=== PATIENT | female | born 1965 | race Two or more races ===

== ENCOUNTER 2016-04-05 13:41 | Emergency (ER) | payer SELFPAY ==
--- NOTE | 2016-04-05 14:16 | Emergency Department Record ---
History of Present Illness - General Chief complaint: Extremity Problem Stated complaint: INJURY TO RT FOOT Time Seen by Provider: 04/05/16 14:12 Source: Patient, RN notes reviewed - History of Present Illness Initial comments: patient fell with trauma to the right foot great toe area just prior to arrival. Great toe deformity present. swelling of ankle and no other injuries. 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: Extremity pain Location: Right, Foot - Related Data Home Medications Medication Instructions Recorded Confirmed Last Taken Amlodipine Besylate [Amlodipine 2.5 mg PO DAILY 04/05/16 04/05/16 Unknown Besylate] Citalopram Hydrobromide 40 mg PO DAILY 04/05/16 04/05/16 Unknown [Citalopram HBr] Losartan Potassium [Losartan 100 mg PO DAILY 04/05/16 04/05/16 Unknown Potassium] Previous Rx's Medication Instructions Recorded Hydrocodone/Acetaminophen [[place] 1 tab PO Q6H PRN #30 tab 04/05/16 5mg/325mg] Allergies Allergy/AdvReac Type Severity Reaction Status Date / Time No Known Drug Allergies Allergy Verified 04/05/16 15:27 Review of Systems Reviewed: No additional complaints except as noted below Constitutional: Reports: As per HPI. Denies: Chills, Fever, Malaise, Night sweats, Weakness, Weight change Eyes: Reports: As per HPI. Denies: Eye discharge, Eye pain, Photophobia, Vision change ENT: Reports: As per HPI. Denies: Congestion, Dental pain, Ear pain, Epistaxis , Hearing loss, Throat pain Respiratory: Reports: As per HPI. Denies: Cough, Dyspnea, Hemoptysis, Stridor, Wheezes Cardiovascular: Reports: As per HPI. Denies: Arrhythmia, Chest pain, Dyspnea on exertion, Edema, Murmurs, Orthopnea, Palpitations, Paroxysmal nocturnal dyspnea, Rheumatic Fever, Syncope Endocrine: Reports: As per HPI. Denies: Fatigue, Heat or cold intolerance, Polydipsia, Polyuria Gastrointestinal: Reports: As per HPI. Denies: Abdominal pain, Constipation, Diarrhea, Hematemesis, Hematochezia, Melena, Nausea, Vomiting Genitourinary: Reports: As per HPI. Denies: Abnormal menses, Discharge, Dyspareunia, Dysuria, Frequency, Hematuria, Incontinence, Retention, Urgency Musculoskeletal: Reports: As per HPI, Arthralgia. Denies: Back pain, Gout, Joint swelling, Myalgia, Neck pain Skin: Reports: As per HPI. Denies: Bruising, Change in color, Change in hair/ nails, Lesions, Pruritus, Rash Neurological: Reports: As per HPI. Denies: Abnormal gait, Confusion, Headache, Numbness, Paresthesias, Seizure, Tingling, Tremors, Vertigo, Weakness Psychiatric: Reports: As per HPI. Denies: Anxiety, Auditory hallucinations, Depression, Homicidal thoughts, Suicidal thoughts, Visual hallucinations Hematological/Lymphatic: Reports: As per HPI. Denies: Anemia, Blood Clots, Easy bleeding, Easy bruising, Swollen glands Physical Exam - General General Appearance: Alert, Oriented x3, Cooperative, Moderate distress - Head Head exam: Normal inspection - Eye Eye exam: Normal appearance, PERRL Pupils: Normal accommodation - ENT ENT exam: Normal exam, Mucous membranes moist, Normal external ear exam, Normal orophraynx, TM's normal bilaterally Ear exam: Normal external inspection. negative: External canal tenderness Nasal Exam: Normal inspection. negative: Discharge, Sinus tenderness Mouth exam: Normal external inspection, Tongue normal Teeth exam: Normal inspection. negative: Dental caries Throat exam: Normal inspection. negative: Tonsillar erythema, Tonsillar exudate - Neck Neck exam: Normal inspection, Full ROM. negative: Tenderness - Respiratory Respiratory exam: Normal lung sounds bilaterally. negative: Respiratory distress - Cardiovascular Cardiovascular Exam: Regular rate, Normal rhythm, Normal heart sounds - GI/Abdominal GI/Abdominal exam: Soft, Normal bowel sounds. negative: Tenderness - Rectal Rectal exam: Deferred - exam: Deferred - Extremities Extremities exam: Normal capillary refill, Tenderness, Other (deformity of the right great toe and swelling of the ankle) - Back Back exam: Reports: Normal inspection, Full ROM. Denies: Muscle spasm, Rash noted, Tenderness - Neurological Neurological exam: Alert, Normal gait, Oriented X3, Reflexes normal - Psychiatric Psychiatric exam: Normal affect, Normal mood - Skin Skin exam: Dry, Intact, Normal color, Warm Course - Reevaluation(s) Reevaluation #1: right great toe dislocated and talked to patient about sedation to reduce the toe and she would like that and risks discussed and explained the procedure of reducing the toe . Conscious sedation with dilaudid 2mg and versed 3 mg and reduced the right great toe with hyperextension and traction. Toe went into position without difficult and her ankle xrayed which revealed a nondisplaced fracture of the fibula. 04/05/16 16:28 Reevaluation #2: short leg posterior mold and crutches 04/05/16 16:32 Disposition Clinical Impression: Ankle fracture, right Qualifiers: Encounter type: initial encounter Fracture type: closed Qualified Code(s): S82.891A - Other fracture of right lower leg, initial encounter for closed fracture Dislocation of great toe, right, closed Qualifiers: Encounter type: initial encounter Qualified Code(s): S93.104A - Unspecified dislocation of right toe(s), initial encounter Disposition: Home, Self-Care Condition: (1) Good Instructions: Ankle Fracture (ED) Additional Instructions: follow up with Dr. Ribeiro 1-2 weeks Prescriptions: Hydrocodone/Acetaminophen [[place] 5mg/325mg] 1 tab PO Q6H PRN #30 tab PRN Reason: Pain - General Forms: Patient Portal Access Time of Disposition: 17:37
[2016-04-05] MEDS ORDERED: LORAZEPAM 2 MG/ML VIAL IV ONE (14:17)
[2016-04-05] MEDS: HYDROMORPHONE HCL 1 MG/ML CPJ IVP ONE ×2 (14:30→15:46)
[2016-04-05] MEDS ORDERED: MIDAZOLAM HCL 2MG/2ML VIAL IV ONE ×2 (15:29→15:30)
[2016-04-05] MEDS ORDERED: HYDROMORPHONE HCL 1 MG/ML CPJ IVP ONE ×2 (15:31)
[2016-04-05] MEDS ORDERED: HYDROMORPHONE HCL 2 MG/ML VIAL IV ONE (15:45)
--- NOTE | 2016-04-06 12:19 | RADIOLOGY REPORT ---
EXAM: RIGHT FOOT COMPLETE HISTORY: SEVERE PAIN IN RIGHT GREAT TOE POST TRAUMA. TECHNIQUE: AP, oblique and lateral views of the right foot were obtained. Comparison: None. FINDINGS: There is evidence of dorsal dislocation of the base of the first proximal phalanx relative to the head of the first metatarsal. No definite acute fracture is seen. There are mild degenerative changes scattered throughout the foot. A moderate sized plantar calcaneal spur is present and there is minor spurring at the Achilles tendon insertion on the posterior calcaneus. IMPRESSION: 1. DORSAL DISLOCATION OF THE BASE OF THE FIRST PROXIMAL PHALANX. NO DEFINITE FRACTURE IS SEEN THOUGH EVALUATION IS SOMEWHAT LIMITED BY SUPERIMPOSITION OF OSSEOUS STRUCTURES. 2. MILD DEGENERATIVE CHANGES SCATTERED WITHIN THE FOOT. 3. CALCANEAL SPURRING. JOB [facility]BER: [id number] [facility]
--- NOTE | 2016-04-06 12:22 | RADIOLOGY REPORT ---
EXAM: RIGHT ANKLE, THREE VIEWS HISTORY: TRAUMA, RIGHT ANKLE PAIN. TECHNIQUE: Three views of the right ankle were obtained. Comparison: Right foot same day. FINDINGS: There is an acute nondisplaced fracture of the right lateral malleolus extending to the level of the tibial plafond. No widening of the syndesmosis. Moderate enthesophyte formation at the plantar fascial insertion. IMPRESSION: ACUTE NONDISPLACED RIGHT LATERAL MALLEOLAR FRACTURE. J[facility]BER: [id number] [facility]
--- NOTE | 2016-04-06 12:26 | RADIOLOGY REPORT ---
EXAM: RIGHT FOOT, THREE VIEWS HISTORY: ACUTE RIGHT FOOT INJURY AND PAIN. TECHNIQUE: Three views of the right foot were obtained. Comparison: Right ankle radiograph same day. Encounter: Initial. FINDINGS: There is severe hallux valgus with first MTP angle of 30 degrees. Mild osteoarthritic change of the right first MTP. No acute fracture. Moderate enthesophyte formation at the plantar fascial insertion. IMPRESSION: 1. NO ACUTE PROCESS OF THE RIGHT FOOT. 2. SEVERE HALLUX VALGUS WITH MILD OSTEOARTHRITIC CHANGE OF THE RIGHT FIRST MTP. 3. CALCANEAL ENTHESOPATHY. ADDENDUM: There has been interval reduction of the dislocated right first proximal phalanx. No fracture in this region. JOB NUMBER: [id number] and [id number] [facility]
== END 2016-04-05 18:25 | disposition home or self-care (01) ==
LOC: ER 13:41
DX: S82.61XA Displaced fracture of lateral malleolus of right fibula, initial encounter for closed fracture (principal); S93.111A Dislocation of interphalangeal joint of right great toe, initial encounter; W00.0XXA Fall on same level due to ice and snow, initial encounter; Y93.F9 Activity, other caregiving; Y92.009 Unspecified place in unspecified non-institutional (private) residence as the place of occurrence of the external cause; Y99.0 Civilian activity done for income or pay
CPT/HCPCS: 28660; 99284 ×2; 96376; 96374; 96375; 28630; 73610; 73630; J1170 ×2; J2060

== ENCOUNTER 2017-07-20 14:30 | Emergency (ER) | payer SELFPAY ==
--- NOTE | 2017-07-20 14:56 | Emergency Department Record ---
History of Present Illness - General Chief complaint: Flank Pain Stated complaint: ABD PAIN Time Seen by Provider: 07/20/17 14:42 Source: Patient Mode of Arrival: Ambulatory Limitations: No limitations - History of Present Illness Initial comments: The patient is here due to L lower back pain for 2 days. The pain was present when she woke up 2 days ago and then slowly has worsened. Now the pain is sharp and stabbing and located in the L lower back. It is much better when NOT moving and becomes quite severe with any movement and twisting. There is no radiation of the pain down the legs and no leg numbness or tingling. She denies any trauma , injury, AP, fever or any bowel or bladder issues. The patient is having some finger tingling when the pain in the lower back becomes severe but she is breathing hard at that time. MD Complaint: Other Onset/Timin -: Days(s) Severity: Severe Severity scale (1-10): 10 Quality: Sharp Consistency: Constant Improves with: Other Worsens with: Movement Associated Symptoms: Denies other symptoms - Related Data Home Medications Medication Instructions Recorded Confirmed Last Taken Hydrochlorothiazide [Hctz] 12.5 mg PO DAILY 07/20/17 07/20/17 Unknown Previous Rx's Medication Instructions Recorded Hydrocodone/Acetaminophen [[place] 1 tab PO Q6H PRN #30 tab 04/05/16 5mg/325mg] Cyclobenzaprine HCl [Flexeril] 10 mg PO TID PRN #20 tablet 07/20/17 Naproxen [Naprosyn] 500 mg PO BID #14 tablet. 07/20/17 Allergies Allergy/AdvReac Type Severity Reaction Status Date / Time No Known Drug Allergies Allergy Verified 07/20/17 14:33 Travel Screening - Travel/Exposure Within Last 30 Days Have you traveled within the last 30 days?: No Review of Systems Constitutional: Denies: Chills, Fever Eyes: Denies: Eye discharge ENT: Denies: Congestion Respiratory: Denies: Cough, Dyspnea Past Medical History - SOCIAL HISTORY Smoking Status: Current every day smoker Alcohol Use: None Drug Use: None - RESPIRATORY Hx Respiratory Disorders: No - CARDIOVASCULAR Hx Cardio Disorders: Yes Hx Hypertension: Yes - NEURO Hx Neuro Disorders: No - GI Hx GI Disorders: No - Hx Genitourinary Disorders: No - ENDOCRINE Hx Endocrine Disorders: No - MUSCULOSKELETAL Hx Musculoskeletal Disorders: No - PSYCH Hx Psych Problems: No - HEMATOLOGY/ONCOLOGY Hx Hematology/Oncology Disorders: No Family Medical History Any Significant Family History?: No Physical Exam - General General Appearance: Alert, Oriented x3, Cooperative, Mild distress (due to back pain.) - Head Head exam: Atraumatic, Normocephalic - Eye Eye exam: Normal appearance, PERRL - Neck Neck exam: Normal inspection, Full ROM. negative: Tenderness - Respiratory Respiratory exam: Normal lung sounds bilaterally. negative: Respiratory distress - Cardiovascular Cardiovascular Exam: Regular rate, Normal rhythm, Normal heart sounds - GI/Abdominal GI/Abdominal exam: Soft, Normal bowel sounds. negative: Tenderness - Extremities Extremities exam: Normal inspection, Full ROM, Normal capillary refill, Other ( Neg SLR bilaterally.). negative: Calf tenderness, Pedal edema, Tenderness Image of Full Body: 1 - Area of pain and tenderness. - Back Back exam: Reports: Normal inspection, Muscle spasm, Paraspinal tenderness (The pain is 100 % reproducible with palpation to the L lower back. ). Denies: Vertebral tenderness (There is no spinal tenderness.) Image of Body Front/Back: 1 - Palpation of this area reproduces the pain 100%. There is no swelling, bruising, or erythema. - Neurological Neurological exam: Alert, Normal gait, Oriented X3, Reflexes normal (The patellar and achilles reflexes are 2+ and equal bilaterally.). negative: Abnormal gait, Altered, Motor sensory deficit - Skin Skin exam: negative: Rash Course Vital Signs 07/20/17 14:38 Temperature 97.6 F Pulse Rate 85 Respiratory 18 Rate Blood Pressure 203/102 Pulse Ox 98 - Reevaluation(s) Reevaluation #1: The patient is doing better at this time. She is resting comfortably but is having significant pain with any movement and twisting. I explained to her that due to her need to drive home I cannot provide any more pain medicines. She is to rest when possible and see her family doctor Sunday if not better. 07/20/17 16:30 Medical Decision Making - Data Complexity MDM Data: Labs Ordered and/or Reviewed, X-Ray Ordered and/or Reviewed - Lab Data Result diagrams: 07/20/17 14:35 07/20/17 14:35 - Radiology Data Radiology results: Report reviewed (Abd/pelvis CT: Neg for any acute abnormality.) Disposition Disposition: Discharge Clinical Impression: Muscle spasm of back Disposition: Home, Self-Care Condition: (2) Stable Instructions: Flank Pain (ED) Additional Instructions: Please rest when possible with no lifting. Please take the Naprosyn and Flexeril as directed. Please see your family doctor for recheck next week. Return to the ER for any worsening pain, leg numbness, weakness or any bowel or bladder incontinence. Prescriptions: Cyclobenzaprine HCl [Flexeril] 10 mg PO TID PRN #20 tablet PRN Reason: Pain Naproxen [Naprosyn] 500 mg PO BID #14 tablet.dr Forms: Patient Portal Access Time of Disposition: 16:35 Quality - Quality Measures Quality Measures: N/A - Blood Pressure Screening View Details: Yes Does Patient Have Any of the Following: Active Dx of HTN Blood Pressure Classification: Hypertensive Reading Systolic Measurement: 169 Diastolic Measurement: 101 Screening for High Blood Pressure: Patient Exclusion, Hx of HTN [G9744]
[2017-07-20 15:01] LABS: BASO % 0.3 % (0-6); EOS % 3.2 % (0-6); GRAN % 66.2 % (47-80); HEMATOCRIT 43.6 % (35.0-47.0); HEMOGLOBIN 14.8 gm/dl (11.6-16.0); LYMPH % 26.2 % (16-45); MEAN CELL VOLUME 96.9 fl (81-97); MEAN CORPUSCULAR HEMOGLOBIN 32.9 pg (27-33); MEAN CORPUSCULAR HGB CONC 33.9 g/dl (32-36); MEAN PLATELET VOLUME 11.4 fl (7.4-10.4); MONO % 4.1 % (0-9); PLATELET COUNT 333 K/uL (130-400); RED CELL DISTRIBUTION WIDTH 13.6 % (11.5-14.5)
[2017-07-20] MEDS: KETOROLAC 30 MG/ML VIAL IM ONE (15:06)
[2017-07-20 15:10] LABS: URINE APPEARANCE SL CLOUDY; URINE BILIRUBIN NEGATIVE (NEGATIVE); URINE BLOOD NEGATIVE (NEGATIVE); URINE COLOR YELLOW; URINE KETONE TRACE (NEGATIVE); URINE LEUKOCYTE ESTERASE NEGATIVE (NEGATIVE); URINE NITRITE NEGATIVE (NEGATIVE); URINE PROTEIN TRACE (NEGATIVE); URINE UROBILINOGEN 0.2 E.U./dL (0.20 - 1.00)
[2017-07-20 15:12] LABS: BLOOD UREA NITROGEN 13 mg/dL (6-20); CREATININE 0.6 mg/dL (0.5-0.9); EST GLOMERULAR FILTRATION RATE > 60 mL/min
[2017-07-20 15:15] LABS: GLUCOSE,RANDOM 186 mg/dL (74-109)
[2017-07-20 15:21] LABS: URINE BACTERIA FEW; URINE RBC 0 - 2 (NONE SEEN); URINE WBC 0 - 2 (0-2/hpf)
[2017-07-20] MEDS: HYDROCODONE/APAP 5/325MG TABLET PO ONE (16:41)
--- NOTE | 2017-07-22 12:30 | CT SCAN REPORT ---
DATE: 07/20/2017 at 1540 hours. EXAM: CT OF THE ABDOMEN AND PELVIS WITHOUT CONTRAST. HISTORY: Abdominal and back pain. TECHNIQUE: Noncontrast images are obtained from the dome of the diaphragm to the symphysis pubic. FINDINGS: The lung bases and pleural spaces are clear. The liver is unremarkable in size and shape without focal mass or biliary dilatation. The gallbladder is unremarkable. The bile ducts are not dilated. The spleen is normal. The pancreas is free of focal masses or pancreatic duct dilatation. The kidneys and adrenal glands demonstrate no evidence of hydronephrosis, calcification, or soft tissue mass. There is no mesenteric mass, bowel dilatation, free air, or intraperitoneal free fluid. The pelvis demonstrates no adenopathy. There is mild sigmoid diverticulosis without diverticulitis. The abdominal wall is unremarkable. There is mild lumbar degenerative disc disease. There is atherosclerosis of the thoracic aorta with minimal focal ectasia of the infrarenal aorta but no evidence of periaortic hematoma or inflammation. IMPRESSION: NO EVIDENCE OF AN ACUTE INTRA-ABDOMINAL OR INTRAPELVIC PROCESS. JOB NUMBER: [id number] [facility]
== END 2017-07-20 16:47 | disposition home or self-care (01) ==
LOC: ER 14:30
DX: M62.830 Muscle spasm of back (principal); R10.9 Unspecified abdominal pain; I10 Essential (primary) hypertension; F17.210 Nicotine dependence, cigarettes, uncomplicated
CPT/HCPCS: 99283; 96372; 99284; 85025; 80048; 81001; 74176; J1885

== ENCOUNTER 2018-07-11 19:24 | Emergency (ER) | payer SELFPAY ==
[2018-07-11] MEDS ORDERED: KETOROLAC 30 MG/ML VIAL IVP ONE (19:37)
[2018-07-11] MEDS ORDERED: ORPHENADRINE CITRATE 60MG/2ML VIAL IM ONE (19:37)
--- NOTE | 2018-07-11 19:43 | Emergency Department Record ---
History of Present Illness - General Stated complaint: RIGHT HIP PAIN Time Seen by Provider: 07/11/18 19:37 Source: Patient, Family Mode of Arrival: Ambulatory Limitations: No limitations - History of Present Illness Initial comments: 52 yo female presents with right hip pain that started early Sunday morning. The pain was somewhat sudden and sharp while laying in bed. Over the week the pain has gradually increased. The pain is in the hip and wraps around from the back. No other joints hurt. NO knee or ankle pain. No leg swelling. No fevers. No rash. No prior surgery. MD Complaint: Joint pain -: Days(s) (5) Location: Right, Other (hip) History of Same: No -: Yes Arthralgia Radiation: Proximal Quality: Aching Consistency: Constant Improves with: Immobilization Worsens with: Walking, Weight bearing Associated Symptoms: Denies other symptoms - Related Data Previous Rx's Medication Instructions Recorded Cyclobenzaprine HCl [Flexeril] 10 mg PO TID #20 tablet 07/11/18 Allergies Allergy/AdvReac Type Severity Reaction Status Date / Time steri strips Allergy BLISTERS Uncoded 07/11/18 19:57 Review of Systems Constitutional: Denies: Chills, Fever, Malaise, Weakness Eyes: Denies: Eye discharge ENT: Denies: Congestion, Throat pain Respiratory: Denies: Cough Cardiovascular: Denies: Chest pain, Palpitations, Syncope Endocrine: Denies: Fatigue Gastrointestinal: Denies: Abdominal pain, Diarrhea, Nausea, Vomiting Genitourinary: Denies: Dysuria Musculoskeletal: Reports: As per HPI, Arthralgia. Denies: Back pain, Joint swelling, Myalgia, Neck pain Skin: Denies: Bruising, Change in color, Rash Neurological: Denies: Headache, Numbness, Tingling, Weakness Psychiatric: Denies: Anxiety Hematological/Lymphatic: Denies: Easy bleeding, Easy bruising Past Medical History - SOCIAL HISTORY Smoking Status: Current every day smoker Drug Use: None - RESPIRATORY Hx Respiratory Disorders: No - CARDIOVASCULAR Hx Cardio Disorders: Yes Hx Hypertension: Yes - NEURO Hx Neuro Disorders: No - GI Hx GI Disorders: No - Hx Genitourinary Disorders: No - ENDOCRINE Hx Endocrine Disorders: No - MUSCULOSKELETAL Hx Musculoskeletal Disorders: No - PSYCH Hx Psych Problems: No - HEMATOLOGY/ONCOLOGY Hx Hematology/Oncology Disorders: No Physical Exam - General General Appearance: Alert, Oriented x3, Cooperative, No acute distress Limitations: No limitations - Head Head exam: Atraumatic, Normal inspection - Eye Eye exam: Normal appearance. negative: Conjunctival injection, Scleral icterus - ENT ENT exam: Normal exam, Mucous membranes moist Ear exam: Normal external inspection Nasal Exam: Normal inspection Mouth exam: Normal external inspection - Neck Neck exam: Normal inspection - Respiratory Respiratory exam: Normal lung sounds bilaterally. negative: Respiratory distress - Cardiovascular Cardiovascular Exam: Regular rate, Normal rhythm, Normal heart sounds - GI/Abdominal GI/Abdominal exam: Soft. negative: Tenderness - Rectal Rectal exam: Deferred - exam: Deferred - Extremities Extremities exam: Normal inspection, Normal capillary refill, Tenderness, Other (Pain with hip ROM, no edema, no knee tenderness, no calf tenderness). negative: Calf tenderness, Full ROM, Joint swelling, Pedal edema - Back Back exam: Reports: Full ROM. Denies: CVA tenderness (R), CVA tenderness (L), Paraspinal tenderness, Tenderness, Vertebral tenderness - Neurological Neurological exam: Alert, Oriented X3, Reflexes normal. negative: Altered, Motor sensory deficit - Psychiatric Psychiatric exam: Normal affect, Normal mood. negative: Agitated, Anxious - Skin Skin exam: Dry, Intact, Normal color, Warm Course Vital Signs 07/11/18 19:30 Temperature 98.2 F Pulse Rate [ 107 H Pulse Ox Probe] Respiratory 20 Rate Blood Pressure 145/87 [Right Arm] Pulse Ox 98 Disposition Disposition: Discharge Clinical Impression: Hip pain, Sciatica Disposition: Home, Self-Care Condition: (1) Good Instructions: Sciatica (ED) Additional Instructions: Call your doctor for the next available follow up appointment Review this ER visit and the tests performed with your family doctor Return to the ER for a recheck if worse, any new concerns or questions Take the prescriptions provided as directed Use the crutches to take pressure off the hip Prescriptions: Cyclobenzaprine HCl [Flexeril] 10 mg PO TID #20 tablet Forms: Patient Portal Access Time of Disposition: 21:37 Quality - Quality Measures Quality Measures: N/A - Blood Pressure Screening Does Patient Have Any of the Following: No Blood Pressure Classification: Hypertensive Reading Systolic Measurement: 158 Diastolic Measurement: 99 Screening for High Blood Pressure: < Pre-Hypertensive BP, F/U Documented > [G8950] Pre-Hypertensive Follow-up Interventions: Referral to alternative/primary care provider.
[2018-07-11] MEDS ORDERED: KETOROLAC 30 MG/ML VIAL IM ONE (19:49)
[2018-07-11] MEDS ORDERED: HYDROCODONE/APAP 5/325MG TABLET PO ONE (21:35)
--- NOTE | 2018-07-14 16:30 | RADIOLOGY REPORT ---
EXAM: HIP,UNILAT, 2-3 VIEW RIGHT HISTORY: RIGHT HIP PAIN. TECHNIQUE: Three views. COMPARISON: None. FINDINGS: RIGHT HIP: There is no fracture or acute osseous abnormality identified. Right hip joint space is fairly well maintained. There is a small 5 mm calcific density near the lateral margin of the right acetabulum. This is nonspecific but can be associated with labral injury. PELVIS: No pelvic fracture or destructive process. SI joints unremarkable. Left hip unremarkable. IMPRESSION: 1. NO ACUTE PROCESS IDENTIFIED. 2. FAINT 5 MM CALCIFIC DENSITY NEAR THE LATERAL MARGIN OF THE RIGHT ACETABULUM, WHICH IS NONSPECIFIC. JOB NUMBER: [id number] [facility]
== END 2018-07-11 21:58 | disposition home or self-care (01) ==
LOC: ER 19:24
DX: M54.31 Sciatica, right side (principal); M25.551 Pain in right hip; F17.210 Nicotine dependence, cigarettes, uncomplicated; I10 Essential (primary) hypertension
CPT/HCPCS: 99283; 96372; 99284; 73502; J1885; J2360